=== PATIENT | male | born 1985 ===

== ENCOUNTER 2023-08-11 09:47 | Day surgery (SDC) | payer BC ==
[2023-08-09 15:26] VITALS: BMI 27.2
[2023-08-11] MEDS ORDERED: Lidocaine 1% PF 5 ML VIAL ONE ×2 (10:53→12:07)
[2023-08-11] MEDS ORDERED: Dexmedetomidine 200 MCG/2 ML VIAL ONE (10:53)
[2023-08-11] MEDS ORDERED: Dexamethasone 20 MG/5 ML VIAL ONE ×2 (10:53→12:07)
[2023-08-11] MEDS ORDERED: Ondansetron PF 4 MG/2 ML Vial ONE ×2 (10:53→12:07)
[2023-08-11] MEDS ORDERED: fentaNYL PF 100 MCG/2 ML SYRINGE ONE ×2 (11:03→13:11)
[2023-08-11] MEDS ORDERED: Bacitracin Zinc Ointment 30 gm TUBE ONE (11:06)
[2023-08-11] MEDS ORDERED: Ciprofloxacin 0.2% Otic (0.25ML CONTAINER) ONE ×2 (11:06→12:55)
[2023-08-11] MEDS ORDERED: Lidocaine 1% (PF) 30 ML VIAL ONE (11:06)
[2023-08-11] MEDS ORDERED: EPINEPHrine 1 MG/ML VIAL ONE (11:06)
[2023-08-11] MEDS ORDERED: ePHEDrine Sulfate 50 MG/10 ML VIAL ONE ×2 (12:07→12:41)
[2023-08-11] MEDS ORDERED: PROPOFOL 200 MG/20 ML VIAL ONE (12:07)
[2023-08-11] MEDS ORDERED: Rocuronium Bromide 10 MG/ML (10ML VIAL) ONE (12:07)
[2023-08-11] MEDS ORDERED: PROPOFOL 40 ML ONE (12:39)
[2023-08-11] MEDS ORDERED: fentaNYL 50 mcg/mL 1 mL Vial ONE ×2 (14:04→14:11)
== END 2023-08-11 15:12 | disposition home or self-care (01) ==
LOC: SDC 09:47
PROVIDERS: ATTEND Specialist
PROC: 09Q77ZZ Repair Right Tympanic Membrane, Via Natural or Artificial Opening (ICD-10-PCS; principal; 2023-08-11)
DX: S09.21XA Traumatic rupture of right ear drum, initial encounter (principal); H91.90 Unspecified hearing loss, unspecified ear; M26.602 Left temporomandibular joint disorder, unspecified; H93.12 Tinnitus, left ear; X58.XXXA Exposure to other specified factors, initial encounter
CPT/HCPCS: J0171; J1100; J2001; J2405; J2704; J3010